=== PATIENT | female | born 1975 | race Caucasian/White ===

== ENCOUNTER 2020-04-23 16:58 | Emergency (ER) | payer OTHER ==
[2020-04-23 18:19] LABS: BASOPHIL 1.3 % (0-2); EOSINOPHIL 8.6 % (0-5); HGB 13.6 g/dl (12.5-16.0); LYMPHOCYTE 28.4 % (15-48); MCH 32.7 pg (25.0-31.0); MCV 96.2 fL (78.0-100.0); MONOCYTE 6.9 % (0-12); MPV 10.8 fL (6.0-9.5); NEUTROPHIL 54.5 % (41-80); NRBC 0; PLT 261 K/uL (150-400); RBC 4.16 M/uL (4.20-5.40); RDW 13.9 % (11.5-14.0)
[2020-04-23 18:45] LABS: ALBUMIN 4.6 g/dL (3.4-5.0); BILIRUBIN - TOTAL 0.6 mg/dL (0.2-1.0); BUN/CREAT RATIO (CALC) 7.3 RATIO; CREATININE 1.23 mg/dL (0.51-0.95); GLOBULIN (CALCULATION) 3.2 g/dL; POTASSIUM 4.2 mmol/L (3.5-5.1); TOTAL PROTEIN 7.8 g/dL (6.4-8.2)
== END 2020-04-23 22:26 | disposition other institution (70) ==
LOC: FER 16:58
PROVIDERS: Emergency Medicine
DX: R22.1 Localized swelling, mass and lump, neck (principal); N17.9 Acute kidney failure, unspecified; R68.84 Jaw pain; F17.210 Nicotine dependence, cigarettes, uncomplicated; Z85.850 Personal history of malignant neoplasm of thyroid; Z98.890 Other specified postprocedural states
CPT/HCPCS: 36415; 70487; 70491; 80053; 85025; J0295; J1100; J2270; J2405; J7030

== ENCOUNTER 2021-07-30 05:29 | Emergency (ER) | payer OTHER ==
[2021-07-30 06:00] LABS: BASOPHIL 0.5 % (0-2); EOSINOPHIL 2.5 % (0-5); HCT 43.1 % (37.0-47.0); HGB 14.9 g/dl (12.5-16.0); LYMPHOCYTE 20.9 % (15-48); MCH 30.3 pg (25.0-31.0); MCHC 34.6 g/dL (32.0-36.0); MCV 87.8 fL (78.0-100.0); MONOCYTE 7.1 % (0-12); MPV 10.9 fL (6.0-9.5); NEUTROPHIL 68.5 % (41-80); NRBC 0; PLT 364 K/uL (150-400); RBC 4.91 M/uL (4.20-5.40); RDW 12.6 % (11.5-14.0); WBC 12.5 K/uL (4.0-10.5)
[2021-07-30 06:19] LABS: ALBUMIN 4.1 g/dL (3.4-5.0); BILIRUBIN - TOTAL 0.5 mg/dL (0.2-1.0); BUN/CREAT RATIO (CALC) 19.4 RATIO; CREATININE 0.98 mg/dL (0.51-0.95); GLOBULIN (CALCULATION) 3.2 g/dL; POTASSIUM 3.1 mmol/L (3.5-5.1); TOTAL PROTEIN 7.3 g/dL (6.4-8.2)
[2021-07-30 08:06] LABS: BILIRUBIN NEGATIVE (NEGATIVE); BLOOD NEGATIVE Ery/uL (NEGATIVE); CLARITY CLEAR (CLEAR); COLOR YELLOW (YELLOW); GLUCOSE (U) NORMAL (NORMAL); LEUKOCYTES 1+ Leu/uL (NEGATIVE); NITRITE NEGATIVE (NEGATIVE); PROTEIN NEGATIVE (NEGATIVE); SPECIFIC GRAVITY <=1.005 (1.001-1.030); UROBILINOGEN 0.2 mg/dL (0.2-1.0)
[2021-07-30 08:17] LABS: BACTERIA TRACE
[2021-07-30] MEDS ORDERED: ONDANSETRON ODT4 MG PO (08:39)
[2021-07-30] MEDS ORDERED: PRILOSEC20 MG PO (08:40)
== END 2021-07-30 09:04 | disposition home or self-care (01) ==
LOC: FER 05:29
PROVIDERS: Internal Medicine
DX: K29.70 Gastritis, unspecified, without bleeding (principal); F17.210 Nicotine dependence, cigarettes, uncomplicated
CPT/HCPCS: 36415; 80053; 81001; 83690; 85025; 87088; J1170; J2550